=== PATIENT | male | born 2000 | race Hispanic/Latino ===

== ENCOUNTER 2023-08-31 15:03 | Outpatient (CLI) | payer BC | END 2023-08-31 15:04 | disposition home or self-care (01) | LOC: ULT 15:03 | PROVIDERS: ATTEND Urology | DX: N43.40 Spermatocele of epididymis, unspecified (principal); N50.89 Other specified disorders of the male genital organs; I86.1 Scrotal varices | CPT/HCPCS: 76870; 93976 ==